=== PATIENT | male | born 2000 | race Caucasian/White ===

== ENCOUNTER 2022-06-29 01:04 | Emergency (ER) | payer BC, SELFPAY ==
--- NOTE | ~2022-06-29 | XR_ITS ---
XR finger 3rd RT min 2V 06/29/2022 02:25 Indication: Right third finger pain Procedure: 4 views right third finger Comparison: No prior studies for comparison. Findings: There is a minimally displaced tuft fracture right third distal phalanx. Mild soft tissue s welling. No foreign bodies. Impression: 1: Minimally displaced tuft fracture right third distal phalanx. Reviewed, dictated and finalized at location A. Impression: 1: Minimally displaced tuft fracture right third distal phalanx.
[2022-06-29 01:07] VITALS: BP 113/68; PULSE 61; RESP 18; TEMP 36.6; O2SAT 98
--- NOTE | 2022-06-29 01:42 | ED.WOUNDLAC ---
HPI - Wound/Laceration General Chief Complaint: Wound/Laceration Stated Complaint: Right middle finger lac/avulsion Time Seen by Provider: 06/29/22 01:34 Source: patient Mode of arrival: ambulatory Limitations: no limitations History of Present Illness HPI narrative: This is a 21-year-old male that presents emergency department after a laceration to the right third finger sustained just prior to arrival. Reports he accidentally got his finger caught in a door hinge. Reports bleeding and pain to the area. Denies decreased range of motion or numbness. Related Data Allergies Allergy/AdvReac Type Severity Reaction Status Date / Time No Known Allergies Allergy Verified 06/29/22 01:10 Review of Systems Review of Systems: CONSTITUTIONAL: Denies fever SKIN: Reports laceration MUSCULOSKELETAL: Denies joint pain NEUROLOGIC: Denies numbness All systems reviewed & are unremarkable except as noted in HPI and below PMFSH Past Medical History Medical History (Updated 06/29/22 @ 03:12 by Cira Bocanegra PA-C) No active medical problems Social History Social History (Updated 06/29/22 @ 01:42 by Cira Bocanegra PA-C) Smoking status: Never smoker Exam Narrative: GENERAL: Well-appearing, well-nourished, and in no acute distress. HEAD: Normocephalic, atraumatic. EYES: EOMI. EXTREMITIES: Normal range of motion. No edema. Right third finger with 2cm linear laceration to the tip of the finger just distal to the nail SKIN: Warm, dry, no rash. NEURO: No focal deficits. Alert and oriented x3. PSYCH: Normal mood and affect Course Vital Signs Vital signs: Vital Signs Temperature 97.9 F 06/29/22 01:07 Pulse Rate 61 06/29/22 01:07 Respiratory Rate 18 06/29/22 01:07 Blood Pressure 113/68 06/29/22 01:07 Pulse Oximetry 98 06/29/22 01:07 Oxygen Delivery Room Air 06/29/22 01:07 Temperature 97.9 F 06/29/22 01:07 Pulse Rate 61 06/29/22 01:07 Respiratory Rate 18 06/29/22 01:07 Blood Pressure 113/68 06/29/22 01:07 Pulse Oximetry 98 06/29/22 01:07 Oxygen Delivery Room Air 06/29/22 01:07 Procedures Laceration Laceration 1: Date: 06/29/22 Time: 03:08 Site: hand Side (If applicable): right Size (cm): 2 Description: linear Depth: simple, single layer Local Anesthetic: lidocaine 1% Amount of anesthesia used (mL): 5 Pre-repair: irrigated extensively ====== Skin Level ====== Skin layer closed with: nylon Size (cm): 4-0 Number of sutures: 2 Technique: simple, interrupted ====== Subcutaneous Layer ====== ====== Muscle Layer ====== ====== Tendon Layer ====== Orthopedic Splinting/Casting Injury #1: Splinting/Casting Date: 06/29/22 Splinting/Casting Time: 03:10 Side: right Upper Extremity Injury Location: finger Upper Extremity Immobilizer: finger (other) Splint: prefabricated Pre-Formed: metal foam finger splint Pre-Procedure Neuro Vascular Exam: normal Post-Procedure Neuro Vascular Exam: normal MDM - Wound/Laceration MDM Narrative Medical decision making narrative: Patient presents to the emergency department for a laceration to the right third finger sustained just prior to arrival. His wound was thoroughly irrigated and closed with sutures. He does have a distal phalanx fracture in the area. Patient given a dose of Ancef in the ED and will be discharged on oral antibiotics. He was placed in a splint. He will be given follow-up with hand surgery. He is up-to-date on tetanus. He was given warnings to return to the ER Imaging Data My impression: Right third finger x-ray: Distal phalanx fracture noted Critical Care Time Critical Care Time Critical Care Time: No Discharge Plan Discharge Clinical Impression: Fracture of distal phalanx of finger, open Qualifiers: Encounter type: initial encounter Finger: mid
[2022-06-29] MEDS: ceFAZolin SODIUM 1 GM VIAL IM (03:21)
== END 2022-06-29 03:27 | disposition home or self-care (01) ==
PROVIDERS: Emergency Provider Emergency Medicine
DX: S62.662B Nondisplaced fracture of distal phalanx of right middle finger, initial encounter for open fracture (principal); W23.0XXA Caught, crushed, jammed, or pinched between moving objects, initial encounter
CPT/HCPCS: 12001; 29125; 73140; 96372; 99284; J0690